=== PATIENT | male | born 1955 | race Caucasian/White ===

== ENCOUNTER 2024-07-04 14:40 | Inpatient (IN) | payer OTHER ==
[~2024-07-04] VITALS: Ht 121.9 cm; Wt 67.1 kg
[2024-07-04 14:48] VITALS: BP 127/67; PULSE 64; RESP 14; TEMP 98.1; O2SAT 96
[2024-07-04 15:55] LABS: BASOPHILS # (AUTO) 0.1 K/uL (0.00-0.22); BASOPHILS % (AUTO) 2.1 % (0.0-2.0); EOSINOPHILS # (AUTO) 0.1 K/uL (0-0.4); EOSINOPHILS % (AUTO) 1.5 % (0.0-4.0); HEMATOCRIT 39.9 % (36-52); HEMOGLOBIN 13.2 g/dL (12.0-18.0); LYMPHOCYTES # (AUTO) 2.7 K/uL (2.0-11.5); LYMPHOCYTES % (AUTO) 45.4 % (20.5-51.1); MEAN CORPUSCULAR HEMOGLOBIN 29 pg (27-31); MEAN CORPUSCULAR HGB CONC 33 g/dL (33-37); MEAN CORPUSCULAR VOLUME 86.3 fL (80-94); MONOCYTES # (AUTO) 0.4 K/uL (0.8-1.0); MONOCYTES % (AUTO) 6.8 % (1.7-9.3); NEUTROPHILS # (AUTO) 2.6 K/uL (1.8-7.7); NEUTROPHILS % (AUTO) 44.2 % (42.2-75.2); PLATELET COUNT (AUTO) 306 K/uL (140-450); RED BLOOD CELL COUNT(AUTO) 4.62 MIL/uL (4.20-6.10); WHITE BLOOD COUNT (AUTO) 5.9 K/uL (4.8-10.8)
[2024-07-04 16:03] LABS: ANION GAP 13.2 (8-16); CALCIUM 8.3 mg/dL (8.5-10.1); CARBON DIOXIDE 24.4 mmol/L (21-32); CREATININE 0.7 mg/dL (0.6-1.3); POTASSIUM 4.6 mmol/L (3.5-5.1)
[2024-07-04 16:08] LABS: ALBUMIN 3.1 g/dL (3.4-5.0); TOTAL BILIRUBIN 0.1 mg/dL (0.0-1.0); TOTAL PROTEIN, SERUM 7.2 g/dL (6.4-8.2)
[2024-07-04 16:44] VITALS: O2SAT 95
[2024-07-04 17:14] LABS: BILIRUBIN,URINE NEGATIVE (NEGATIVE); BLOOD, URINE 2+ (NEGATIVE); LEUKOCYTE ESTERASE ,URINE 3+ (NEGATIVE); NITRITE, URINE POSITIVE (NEGATIVE); PH,URINE 7.5 (5.0-9.0); PROTEIN,URINE NEGATIVE (NEGATIVE); UGLUCOSE 1+ (NEGATIVE); UROBILINOGEN,URINE 0.2 EU/dL (0.2 - 1)
[2024-07-04 17:23] LABS: APPEARANCE,URINE SLIGHTLY CLOUDY (CLEAR); COLOR,URINE AMBER (YELLOW)
[2024-07-04 17:25] LABS: BACTERIA,URINE >30 (MANY) /HPF (None Seen); RBC,URINE 11-20 (MOD) /HPF (0-5); SQUAMOUS EPITHELIAL CELL,UR 0-3 (FEW) /LPF (0-3 (FEW))
[2024-07-04] MEDS ORDERED: cefTRIAXone 1,000 MG VIAL ONE (17:44)
[2024-07-04 18:07] LABS: LACTIC ACID 2.8 mmol/L (0.4-2.0)
[2024-07-04] MEDS: NACL 0.9% 2,000 ML IV ONE (18:18)
[2024-07-04] MEDS ORDERED: ACETAMINOPHEN 325 MG TAB PO PRN (18:30)
[2024-07-04] MEDS ORDERED: ONDANSETRON 4 MG/2 ML VIAL IVP PRN (18:30)
[2024-07-04 18:47] VITALS: O2SAT 95
[2024-07-04] MEDS ORDERED: POTA10TA81 PO (20:18)
[2024-07-04] MEDS ORDERED: LEVE250T1 PO (20:18)
[2024-07-04] MEDS ORDERED: ATOR40TA PO (20:18)
[2024-07-04] MEDS ORDERED: BISA-279 RC (20:18)
[2024-07-04] MEDS ORDERED: PHEN50CT5 PO (20:18)
[2024-07-04] MEDS ORDERED: ACET500T99 PO (20:18)
[2024-07-04] MEDS ORDERED: LISI-951 PO (20:18)
[2024-07-04] MEDS ORDERED: DOCU-299 PO (20:18)
[2024-07-04] MEDS ORDERED: ASPI-1822 PO (20:18)
[2024-07-04] MEDS ORDERED: TAMS0.4C96 PO (20:18)
[2024-07-04] MEDS ORDERED: INSU100I7 SQ (20:18)
[2024-07-04] MEDS ORDERED: SLIDE SUBQ (20:18)
[2024-07-04] MEDS ORDERED: METF-713 PO (20:18)
[2024-07-04] MEDS ORDERED: AMLO2.5T PO (20:18)
[2024-07-04] MEDS ORDERED: MULT-2253 PO (20:18)
[2024-07-04] MEDS ORDERED: GABA300C PO (20:18)
[2024-07-04] MEDS ORDERED: GLUC1AUT SQ (20:18)
[2024-07-04] MEDS ORDERED: FERR325E14 PO (20:18)
[2024-07-04 20:19] VITALS: O2SAT 95
[2024-07-04] MEDS: NACL 0.9% 1,000 ML IV SCH (20:41)
[2024-07-04] MEDS: MORPHINE SULFATE 4 MG/ML SYR IVP PRN (23:44)
[2024-07-05] VITALS (11 sets, daily range): BP systolic 127–144; BP diastolic 60–73; PULSE 66–88; RESP 16–17; TEMP 98.4–98.5; O2SAT 97–99
[2024-07-05 05:56] LABS: BASOPHILS # (AUTO) 0.2 K/uL (0.00-0.22); BASOPHILS % (AUTO) 1.5 % (0.0-2.0); HEMATOCRIT 38.5 % (36-52); HEMOGLOBIN 12.8 g/dL (12.0-18.0); LYMPHOCYTES # (AUTO) 1.2 K/uL (2.0-11.5); LYMPHOCYTES % (AUTO) 9.3 % (20.5-51.1); MEAN CORPUSCULAR HEMOGLOBIN 29 pg (27-31); MEAN CORPUSCULAR HGB CONC 33 g/dL (33-37); MEAN CORPUSCULAR VOLUME 86.5 fL (80-94); MONOCYTES # (AUTO) 0.8 K/uL (0.8-1.0); MONOCYTES % (AUTO) 6.5 % (1.7-9.3); NEUTROPHILS # (AUTO) 10.9 K/uL (1.8-7.7); NEUTROPHILS % (AUTO) 82.7 % (42.2-75.2); PLATELET COUNT (AUTO) 257 K/uL (140-450); RED BLOOD CELL COUNT(AUTO) 4.44 MIL/uL (4.20-6.10); RED CELL DISTRIBUTION WIDTH 13.3 % (11.6-13.7); WHITE BLOOD COUNT (AUTO) 13.1 K/uL (4.8-10.8)
[2024-07-05 06:17] LABS: ANION GAP 15.5 (8-16); CALCIUM 8.4 mg/dL (8.5-10.1); CREATININE 0.7 mg/dL (0.6-1.3); POTASSIUM 4.5 mmol/L (3.5-5.1)
[2024-07-05] MEDS: HYDROcodone/APAP 5/325 MG 1 TAB TAB PO PRN (11:00)
[2024-07-05] MEDS: Z-GUARD PASTE TP ONE (17:10)
[2024-07-06] VITALS: BP 140/67; PULSE 83; RESP 16; TEMP 98.5; O2SAT 99
[2024-07-06 04:00] VITALS: BP 121/59; PULSE 64; RESP 16; TEMP 97.4; O2SAT 95
[2024-07-06 08:00] VITALS: BP 109/71; PULSE 69; RESP 18; TEMP 96.9; O2SAT 97; O2SAT 99
[2024-07-06 09:16] LABS: HEMATOCRIT 37.7 % (36-52); HEMOGLOBIN 12.5 g/dL (12.0-18.0); MEAN CORPUSCULAR HEMOGLOBIN 29 pg (27-31); MEAN CORPUSCULAR HGB CONC 33 g/dL (33-37); PLATELET COUNT (AUTO) 272 K/uL (140-450); RED BLOOD CELL COUNT(AUTO) 4.38 MIL/uL (4.20-6.10); RED CELL DISTRIBUTION WIDTH 13.5 % (11.6-13.7); WHITE BLOOD COUNT (AUTO) 6.4 K/uL (4.8-10.8)
[2024-07-06 09:25] LABS: ANION GAP 13.7 (8-16); CALCIUM 7.7 mg/dL (8.5-10.1); CARBON DIOXIDE 22.8 mmol/L (21-32); CREATININE 0.5 mg/dL (0.6-1.3); POTASSIUM 3.5 mmol/L (3.5-5.1)
[2024-07-06 09:42] LABS: BASOPHILS % (MANUAL) 0 % (0-2); BLASTS, MANUAL % 0 % (0-0); EOSINOPHILS % (MANUAL) 1 % (0-4); LYMPHOCYTES % (MANUAL) 25 % (20-46); METAMYELOCYTES % 0 % (0-0); MONOCYTES % (MANUAL) 6 % (5-12); MYELOCYTES % 0 % (0-0); OTHER CELLS,MANUAL % 0 (0-0); PLASMA CELLS 0; PLATELET ESTIMATE ADEQUATE; PROMYELOCYTES % 0 % (0-0); SMUDGE CELLS 0
[2024-07-06] MEDS: MAG SULF 2000 MG/WATER PREMIX 100 ML IV ONE (11:10)
[2024-07-06] MEDS ORDERED: Z-GUARD PASTE TP PRN (11:25)
[2024-07-06] MEDS: FOAM DRESSING TP SCH (13:08)
[2024-07-06] MEDS: THERAHONEY GEL 42.5 GM TP SCH (13:09)
[2024-07-06] MEDS: Z-GUARD PASTE TP SCH (13:30)
[2024-07-06 16:00] VITALS: BP 117/62; PULSE 75; RESP 16; TEMP 98; O2SAT 95
[2024-07-06 20:00] VITALS: BP 144/68; PULSE 78; RESP 18; TEMP 98.1; O2SAT 95
[2024-07-07] VITALS (32 sets, daily range): BP systolic 80–190; BP diastolic 5–80; PULSE 47–119; RESP 16–31; TEMP 97.1–98.4; O2SAT 92–100
[2024-07-07] MEDS: PROPOFOL 1000 MG/100 ML PREMIX 100 ML IV PRN (00:30)
[2024-07-07] MEDS: PROPOFOL 1000 MG/100 ML PREMIX 100 ML IV ONE (00:44)
[2024-07-07 01:53] LABS: BLOOD GAS BASE EXCESS -5.4 mmol/L (-2.0-3.0); BLOOD GAS HCO3 19.1 mmol/L (21.0-28.0); BLOOD GAS PCO2 34.2 mmHg (35.0-48.0); BLOOD GAS PH 7.366 (7.350-7.450); BLOOD GAS PO2 67.9 mmHg (83.0-108.0)
[2024-07-07 02:04] LABS: BASOPHILS % (AUTO) 0.3 % (0.0-2.0); EOSINOPHILS % (AUTO) 0.2 % (0.0-4.0); HEMOGLOBIN 12.1 g/dL (12.0-18.0); LYMPHOCYTES # (AUTO) 0.8 K/uL (2.0-11.5); MEAN CORPUSCULAR HEMOGLOBIN 29 pg (27-31); MEAN CORPUSCULAR HGB CONC 34 g/dL (33-37); MEAN CORPUSCULAR VOLUME 86.3 fL (80-94); MONOCYTES # (AUTO) 0.6 K/uL (0.8-1.0); MONOCYTES % (AUTO) 5.7 % (1.7-9.3); NEUTROPHILS % (AUTO) 85.8 % (42.2-75.2); PLATELET COUNT (AUTO) 261 K/uL (140-450); RED BLOOD CELL COUNT(AUTO) 4.17 MIL/uL (4.20-6.10); RED CELL DISTRIBUTION WIDTH 13.2 % (11.6-13.7); WHITE BLOOD COUNT (AUTO) 10.4 K/uL (4.8-10.8)
[2024-07-07] MEDS: MIDODRINE 5 MG TAB ONE (02:07)
[2024-07-07 02:15] LABS: ANION GAP 15.9 (8-16); CALCIUM 7.6 mg/dL (8.5-10.1); CARBON DIOXIDE 19.5 mmol/L (21-32); CREATININE 0.6 mg/dL (0.6-1.3); POTASSIUM 3.4 mmol/L (3.5-5.1)
[2024-07-07] MEDS: fentaNYL citrate 0.05 MG/ML VIAL ONE (02:20)
[2024-07-07] MEDS: fentaNYL citrate 1 MG in NACL 0.9% 80 ML IV PRN (02:20)
[2024-07-07] MEDS: MIDODRINE 5 MG TAB NG SCH (02:27)
[2024-07-07] MEDS ORDERED: HEPARIN PER PHARMACY MC PRN (02:40)
[2024-07-07] MEDS ORDERED: hePARIN / DEXT 5% PREMIX 250 ML IV SCH (02:40)
[2024-07-07] MEDS: NOREPINEPHRINE 4 MG in DEXTROSE 5% 250 ML IV PRN (03:13)
[2024-07-07] MEDS: NOREPINEPHRINE 4 MG/4 ML VIAL IV ONE (03:17)
[2024-07-07] MEDS: hePARIN / DEXT 5% PREMIX 250 ML IV SCH (07:30)
[2024-07-07] MEDS: MIDODRINE 5 MG TAB PO SCH ×2 (10:06→18:30)
[2024-07-07] MEDS ORDERED: ETOMIDATE 20 MG/10 ML VIAL IVP ONE (12:00)
[2024-07-07] MEDS ORDERED: SUCCINYLCHOLINE CHLORIDE 200 MG/10 ML VIAL IVP ONE (12:00)
[2024-07-07] MEDS ORDERED: ROCURONIUM 50 MG/5 ML VIAL IV ONE (12:00)
[2024-07-07] MEDS ORDERED: DEXTROSE 50% 50 ML SYR IVP PRN (14:00)
[2024-07-07] MEDS: FUROSEMIDE 20 MG/2 ML VIAL IVP SCH (14:09)
[2024-07-07] MEDS: PIPERACILLIN/TAZOBACTAM 3.375 GM in DEXTROSE 5% 50 ML IV SCH (14:12)
[2024-07-07 16:55] LABS: INR 1.04 (0.8-1.2); PROTHROMBIN TIME 10.9 secs (10.8-13.4)
[2024-07-07] MEDS: BLOOD GLUCOSE MONITORING 1 DEV DEV FS SCH (18:40)
[2024-07-07] MEDS: INSULIN LISPRO SLIDING SCALE 100 UNITS/ML VIAL SUBQ PRN (18:41)
[2024-07-07] MEDS: ALBUTEROL SULFATE/IPRATROPIU 3 ML SOL IH SCH (19:31)
[2024-07-07] MEDS ORDERED: PHENYTOIN PO SCH (21:00)
[2024-07-07] MEDS ORDERED: LEVETIRACETAM PO SCH (21:00)
[2024-07-07] MEDS: ATORVASTATIN 20 MG TAB NG SCH (21:06)
[2024-07-07] MEDS: levETIRAcetam 100 MG/ML ORASYR GT SCH (21:06)
[2024-07-07] MEDS: PHENYTOIN 100 MG/4 ML UDC GT SCH (21:07)
[2024-07-07] MEDS: FAMOTIDINE 20 MG/2 ML VIAL IV SCH (21:09)
[2024-07-08] VITALS (33 sets, daily range): BP systolic 83–174; BP diastolic 48–105; PULSE 46–120; RESP 19–32; TEMP 97.2–98.4; O2SAT 96–100
[2024-07-08] MEDS: NOREPINEPHRINE 16 MG in DEXTROSE 5% 250 ML IV PRN
[2024-07-08] MEDS: NOREPINEPHRINE 4 MG/4 ML VIAL IV ONE (00:24)
[2024-07-08 05:07] LABS: BASOPHILS # (AUTO) 0.1 K/uL (0.00-0.22); BASOPHILS % (AUTO) 0.9 % (0.0-2.0); EOSINOPHILS # (AUTO) 0.1 K/uL (0-0.4); HEMATOCRIT 34.2 % (36-52); HEMOGLOBIN 11.3 g/dL (12.0-18.0); LYMPHOCYTES # (AUTO) 2.1 K/uL (2.0-11.5); LYMPHOCYTES % (AUTO) 21.8 % (20.5-51.1); MEAN CORPUSCULAR HEMOGLOBIN 28 pg (27-31); MEAN CORPUSCULAR HGB CONC 33 g/dL (33-37); MEAN CORPUSCULAR VOLUME 85.9 fL (80-94); MONOCYTES # (AUTO) 1.2 K/uL (0.8-1.0); MONOCYTES % (AUTO) 12.5 % (1.7-9.3); NEUTROPHILS # (AUTO) 6.1 K/uL (1.8-7.7); NEUTROPHILS % (AUTO) 63.8 % (42.2-75.2); PLATELET COUNT (AUTO) 244 K/uL (140-450); RED BLOOD CELL COUNT(AUTO) 3.99 MIL/uL (4.20-6.10); RED CELL DISTRIBUTION WIDTH 13.2 % (11.6-13.7); WHITE BLOOD COUNT (AUTO) 9.5 K/uL (4.8-10.8)
[2024-07-08 05:29] LABS: ANION GAP 12.7 (8-16); CALCIUM 7.8 mg/dL (8.5-10.1); CARBON DIOXIDE 23.9 mmol/L (21-32); CREATININE 0.6 mg/dL (0.6-1.3)
[2024-07-08 05:53] LABS: POTASSIUM 2.6 mmol/L (3.5-5.1)
[2024-07-08] MEDS: POTASSIUM CHLORIDE 20% 40 MEQ/15 ML UDC PO PRN (06:48)
[2024-07-08] MEDS: TAMSULOSIN 0.4 MG CAP PO SCH (08:37)
[2024-07-08] MEDS: ASPIRIN 81 MG TAB.CHEW NG SCH (08:38)
[2024-07-08] MEDS: MULTIVITAMIN/MINERALS 15 ML UDBTL GT SCH (08:40)
[2024-07-08] MEDS ORDERED: NON-FORMULARY ITEM (Multivitamin (Multi-Vitamin Daily) 1 TAB) PO SCH (09:00)
[2024-07-08] MEDS: KCL 20 MEQ IN 100 mL PREMIX 200 ML IV SCH (10:51)
[2024-07-08] MEDS: MAG SULF 2000 MG/WATER PREMIX 50 ML IV SCH (14:08)
[2024-07-08] MEDS: NACL 0.9% 1,000 ML IV SCH (15:27)
[2024-07-09] VITALS (32 sets, daily range): BP systolic 92–140; BP diastolic 51–74; PULSE 56–87; RESP 13–20; TEMP 97.9–99; O2SAT 95–100
[2024-07-09 06:15] LABS: BASOPHILS # (AUTO) 0.1 K/uL (0.00-0.22); BASOPHILS % (AUTO) 0.9 % (0.0-2.0); EOSINOPHILS # (AUTO) 0.1 K/uL (0-0.4); EOSINOPHILS % (AUTO) 1.7 % (0.0-4.0); HEMATOCRIT 29.7 % (36-52); HEMOGLOBIN 10.2 g/dL (12.0-18.0); LYMPHOCYTES # (AUTO) 1.7 K/uL (2.0-11.5); MEAN CORPUSCULAR HEMOGLOBIN 29 pg (27-31); MEAN CORPUSCULAR HGB CONC 34 g/dL (33-37); MEAN CORPUSCULAR VOLUME 85.9 fL (80-94); MONOCYTES # (AUTO) 0.9 K/uL (0.8-1.0); MONOCYTES % (AUTO) 11.9 % (1.7-9.3); NEUTROPHILS # (AUTO) 4.9 K/uL (1.8-7.7); NEUTROPHILS % (AUTO) 63.5 % (42.2-75.2); PLATELET COUNT (AUTO) 226 K/uL (140-450); RED BLOOD CELL COUNT(AUTO) 3.45 MIL/uL (4.20-6.10); RED CELL DISTRIBUTION WIDTH 13.4 % (11.6-13.7); WHITE BLOOD COUNT (AUTO) 7.8 K/uL (4.8-10.8)
[2024-07-09 06:26] LABS: ANION GAP 11.6 (8-16); CALCIUM 7.6 mg/dL (8.5-10.1); CARBON DIOXIDE 24.2 mmol/L (21-32); CREATININE 0.6 mg/dL (0.6-1.3); POTASSIUM 3.8 mmol/L (3.5-5.1)
[2024-07-09] MEDS: NOREPINEPHRINE 8 MG in DEXTROSE 5% 250 ML IV PRN (11:27)
[2024-07-10] VITALS (34 sets, daily range): BP systolic 88–148; BP diastolic 49–88; PULSE 53–79; RESP 15–22; TEMP 97.8–98.8; O2SAT 94–100
[2024-07-10 05:19] LABS: BASOPHILS % (AUTO) 0.3 % (0.0-2.0); EOSINOPHILS # (AUTO) 0.3 K/uL (0-0.4); EOSINOPHILS % (AUTO) 3.8 % (0.0-4.0); HEMATOCRIT 30.4 % (36-52); HEMOGLOBIN 10.2 g/dL (12.0-18.0); LYMPHOCYTES # (AUTO) 1.6 K/uL (2.0-11.5); MEAN CORPUSCULAR HEMOGLOBIN 29 pg (27-31); MEAN CORPUSCULAR HGB CONC 33 g/dL (33-37); MEAN CORPUSCULAR VOLUME 85.7 fL (80-94); MONOCYTES # (AUTO) 0.8 K/uL (0.8-1.0); MONOCYTES % (AUTO) 10.1 % (1.7-9.3); NEUTROPHILS # (AUTO) 5.6 K/uL (1.8-7.7); NEUTROPHILS % (AUTO) 66.8 % (42.2-75.2); PLATELET COUNT (AUTO) 236 K/uL (140-450); RED BLOOD CELL COUNT(AUTO) 3.55 MIL/uL (4.20-6.10); RED CELL DISTRIBUTION WIDTH 13.4 % (11.6-13.7); WHITE BLOOD COUNT (AUTO) 8.3 K/uL (4.8-10.8)
[2024-07-10 05:32] LABS: ALBUMIN 1.9 g/dL (3.4-5.0); CALCIUM 7.6 mg/dL (8.5-10.1); CREATININE 0.6 mg/dL (0.6-1.3); TOTAL BILIRUBIN 0.3 mg/dL (0.0-1.0); TOTAL PROTEIN, SERUM 5.9 g/dL (6.4-8.2)
[2024-07-10] MEDS: FOAM DRESSING TP PRN (05:40)
[2024-07-10] MEDS: THERAHONEY GEL 42.5 GM TP PRN (05:40)
[2024-07-10] MEDS ORDERED: DEXMEDETOMIDINE HCL 400 MCG in NACL 0.9% 96 ML IV PRN (19:50)
[2024-07-10] MEDS: DEXMEDETOMIDINE HCL 100 MCG/ML 2 ML VIAL IV ONE (19:55)
[2024-07-10] MEDS: DEXMEDETOMIDINE HCL 400 MCG in NACL 0.9% 96 ML IV PRN (20:00)
[2024-07-11] VITALS (35 sets, daily range): BP systolic 87–134; BP diastolic 50–68; PULSE 51–104; RESP 16–23; TEMP 97.4–97.9; O2SAT 93–100
[2024-07-11] MEDS: DEXMEDETOMIDINE HCL 400 MCG in NACL 0.9% 96 ML IV PRN (11:46)
[2024-07-12] VITALS (33 sets, daily range): BP systolic 102–151; BP diastolic 49–75; PULSE 52–98; RESP 12–20; TEMP 97.3–98.6; O2SAT 93–100
[2024-07-12 05:25] LABS: BASOPHILS # (AUTO) 0.1 K/uL (0.00-0.22); BASOPHILS % (AUTO) 1.1 % (0.0-2.0); EOSINOPHILS # (AUTO) 0.2 K/uL (0-0.4); EOSINOPHILS % (AUTO) 2.7 % (0.0-4.0); HEMATOCRIT 29.8 % (36-52); LYMPHOCYTES # (AUTO) 2.3 K/uL (2.0-11.5); LYMPHOCYTES % (AUTO) 27.7 % (20.5-51.1); MEAN CORPUSCULAR HEMOGLOBIN 29 pg (27-31); MEAN CORPUSCULAR HGB CONC 34 g/dL (33-37); MONOCYTES # (AUTO) 0.8 K/uL (0.8-1.0); MONOCYTES % (AUTO) 9.5 % (1.7-9.3); NEUTROPHILS # (AUTO) 4.9 K/uL (1.8-7.7); PLATELET COUNT (AUTO) 303 K/uL (140-450); RED BLOOD CELL COUNT(AUTO) 3.46 MIL/uL (4.20-6.10); RED CELL DISTRIBUTION WIDTH 13.7 % (11.6-13.7); WHITE BLOOD COUNT (AUTO) 8.2 K/uL (4.8-10.8)
[2024-07-12 06:08] LABS: ANION GAP 12.1 (8-16); CALCIUM 8.2 mg/dL (8.5-10.1); CARBON DIOXIDE 27.9 mmol/L (21-32); CREATININE 0.7 mg/dL (0.6-1.3)
[2024-07-13] VITALS (22 sets, daily range): BP systolic 103–154; BP diastolic 54–77; PULSE 46–88; RESP 15–25; TEMP 97.2–98; O2SAT 96–100
[2024-07-13 09:12] LABS: BASOPHILS # (AUTO) 0.1 K/uL (0.00-0.22); BASOPHILS % (AUTO) 0.8 % (0.0-2.0); EOSINOPHILS # (AUTO) 0.3 K/uL (0-0.4); EOSINOPHILS % (AUTO) 2.9 % (0.0-4.0); HEMATOCRIT 31.3 % (36-52); HEMOGLOBIN 10.3 g/dL (12.0-18.0); LYMPHOCYTES # (AUTO) 2.5 K/uL (2.0-11.5); LYMPHOCYTES % (AUTO) 26.2 % (20.5-51.1); MEAN CORPUSCULAR HEMOGLOBIN 28 pg (27-31); MEAN CORPUSCULAR HGB CONC 33 g/dL (33-37); MEAN CORPUSCULAR VOLUME 86.4 fL (80-94); MONOCYTES # (AUTO) 0.7 K/uL (0.8-1.0); MONOCYTES % (AUTO) 7.3 % (1.7-9.3); NEUTROPHILS % (AUTO) 62.8 % (42.2-75.2); PLATELET COUNT (AUTO) 359 K/uL (140-450); RED BLOOD CELL COUNT(AUTO) 3.62 MIL/uL (4.20-6.10); RED CELL DISTRIBUTION WIDTH 13.8 % (11.6-13.7); WHITE BLOOD COUNT (AUTO) 9.6 K/uL (4.8-10.8)
[2024-07-13 09:37] LABS: ANION GAP 9.1 (8-16); CALCIUM 8.5 mg/dL (8.5-10.1); CARBON DIOXIDE 29.7 mmol/L (21-32); CREATININE 0.7 mg/dL (0.6-1.3); POTASSIUM 3.8 mmol/L (3.5-5.1)
[2024-07-13] MEDS: DEXT 5% / NACL 0.9% 1,000 ML IV SCH (17:02)
[2024-07-14] VITALS (17 sets, daily range): BP systolic 128–143; BP diastolic 32–84; PULSE 79–138; RESP 16–33; TEMP 97.8–98.2; O2SAT 92–100
[2024-07-14 06:01] LABS: ANION GAP 12.4 (8-16); CALCIUM 8.4 mg/dL (8.5-10.1); CARBON DIOXIDE 27.9 mmol/L (21-32); CREATININE 0.7 mg/dL (0.6-1.3); POTASSIUM 3.3 mmol/L (3.5-5.1)
[2024-07-14 06:27] LABS: BASOPHILS # (AUTO) 0.1 K/uL (0.00-0.22); BASOPHILS % (AUTO) 0.9 % (0.0-2.0); EOSINOPHILS # (AUTO) 0.2 K/uL (0-0.4); EOSINOPHILS % (AUTO) 2.2 % (0.0-4.0); HEMATOCRIT 31.3 % (36-52); HEMOGLOBIN 10.2 g/dL (12.0-18.0); LYMPHOCYTES % (AUTO) 30.8 % (20.5-51.1); MEAN CORPUSCULAR HEMOGLOBIN 28 pg (27-31); MEAN CORPUSCULAR HGB CONC 33 g/dL (33-37); MEAN CORPUSCULAR VOLUME 87.1 fL (80-94); MONOCYTES # (AUTO) 1.2 K/uL (0.8-1.0); MONOCYTES % (AUTO) 12.7 % (1.7-9.3); NEUTROPHILS # (AUTO) 5.2 K/uL (1.8-7.7); NEUTROPHILS % (AUTO) 53.4 % (42.2-75.2); PLATELET COUNT (AUTO) 390 K/uL (140-450); RED BLOOD CELL COUNT(AUTO) 3.59 MIL/uL (4.20-6.10); WHITE BLOOD COUNT (AUTO) 9.8 K/uL (4.8-10.8)
[2024-07-14] MEDS: KCL 20 MEQ IN 100 mL PREMIX 200 ML IV PRN (08:31)
[2024-07-14] MEDS: ALBUTEROL SULFATE/IPRATROPIU 3 ML SOL IH PRN (11:08)
[2024-07-14] MEDS: ALBUTEROL SULFATE/IPRATROPIU 3 ML SOL IH SCH (11:32)
[2024-07-14] MEDS: ACETYLCYSTEINE 10% (100 MG/ML) 100 MG/ML VIAL INH SCH (11:33)
[2024-07-14] MEDS: FUROSEMIDE 20 MG/2 ML VIAL IVP SCH (12:38)
[2024-07-14] MEDS: PHENYTOIN 100 MG/2 ML VIAL IVP SCH (20:31)
[2024-07-14] MEDS: levETIRAcetam 500 MG in NACL 0.9% 100 ML IV SCH (20:36)
[2024-07-15] VITALS (17 sets, daily range): BP systolic 111–142; BP diastolic 56–78; PULSE 74–101; RESP 14–29; TEMP 96.5–98.5; O2SAT 95–99
[2024-07-15] MEDS: MULTIVITAMIN/MINERALS 1 TAB PO SCH (08:44)
[2024-07-15 12:24] LABS: BASOPHILS # (AUTO) 0.1 K/uL (0.00-0.22); BASOPHILS % (AUTO) 1.4 % (0.0-2.0); EOSINOPHILS # (AUTO) 0.1 K/uL (0-0.4); EOSINOPHILS % (AUTO) 1.7 % (0.0-4.0); HEMATOCRIT 33.4 % (36-52); LYMPHOCYTES # (AUTO) 2.3 K/uL (2.0-11.5); LYMPHOCYTES % (AUTO) 31.6 % (20.5-51.1); MEAN CORPUSCULAR HEMOGLOBIN 28 pg (27-31); MEAN CORPUSCULAR HGB CONC 33 g/dL (33-37); MEAN CORPUSCULAR VOLUME 86.6 fL (80-94); MONOCYTES % (AUTO) 13.5 % (1.7-9.3); NEUTROPHILS # (AUTO) 3.7 K/uL (1.8-7.7); NEUTROPHILS % (AUTO) 51.8 % (42.2-75.2); PLATELET COUNT (AUTO) 402 K/uL (140-450); RED BLOOD CELL COUNT(AUTO) 3.86 MIL/uL (4.20-6.10); WHITE BLOOD COUNT (AUTO) 7.2 K/uL (4.8-10.8)
[2024-07-15 12:36] LABS: MAGNESIUM 1.4 mg/dL (1.8-2.4)
[2024-07-15 13:12] LABS: ANION GAP 11.1 (8-16); CALCIUM 8.2 mg/dL (8.5-10.1); CARBON DIOXIDE 28.1 mmol/L (21-32); CREATININE 0.7 mg/dL (0.6-1.3); POTASSIUM 3.2 mmol/L (3.5-5.1)
[2024-07-15] MEDS: MAG SULF 2000 MG/WATER PREMIX 50 ML IV SCH (16:21)
[2024-07-16] VITALS (8 sets, daily range): BP systolic 119–137; BP diastolic 68–80; PULSE 67–88; RESP 18–24; TEMP 96.5–99.9; O2SAT 94–96
[2024-07-16 05:18] LABS: BASOPHILS # (AUTO) 0.2 K/uL (0.00-0.22); BASOPHILS % (AUTO) 2.2 % (0.0-2.0); EOSINOPHILS # (AUTO) 0.3 K/uL (0-0.4); EOSINOPHILS % (AUTO) 3.3 % (0.0-4.0); HEMATOCRIT 32.3 % (36-52); HEMOGLOBIN 10.7 g/dL (12.0-18.0); LYMPHOCYTES # (AUTO) 2.5 K/uL (2.0-11.5); LYMPHOCYTES % (AUTO) 29.7 % (20.5-51.1); MEAN CORPUSCULAR HEMOGLOBIN 29 pg (27-31); MEAN CORPUSCULAR HGB CONC 33 g/dL (33-37); MEAN CORPUSCULAR VOLUME 86.4 fL (80-94); MONOCYTES # (AUTO) 0.8 K/uL (0.8-1.0); MONOCYTES % (AUTO) 8.9 % (1.7-9.3); NEUTROPHILS # (AUTO) 4.8 K/uL (1.8-7.7); NEUTROPHILS % (AUTO) 55.9 % (42.2-75.2); PLATELET COUNT (AUTO) 426 K/uL (140-450); RED BLOOD CELL COUNT(AUTO) 3.74 MIL/uL (4.20-6.10); RED CELL DISTRIBUTION WIDTH 14.3 % (11.6-13.7); WHITE BLOOD COUNT (AUTO) 8.6 K/uL (4.8-10.8)
[2024-07-16 05:27] LABS: ANION GAP 10.1 (8-16); CALCIUM 8.2 mg/dL (8.5-10.1); CREATININE 0.6 mg/dL (0.6-1.3); POTASSIUM 4.1 mmol/L (3.5-5.1)
[2024-07-16 13:36] LABS: MAGNESIUM 1.9 mg/dL (1.8-2.4)
== END 2024-07-16 18:50 | DRG 870 ==
LOC: MED 14:40 → MMU 18:26 → MTU 20:24 → OBSVTOIN 22:22 → MIC 07-07 00:15 → MTU 07-15 15:30
PROVIDERS: ADMIT Hospitalist; ATTEND Hospitalist
PROC: 5A1955Z Respiratory Ventilation, Greater than 96 Consecutive Hours (ICD-10-PCS; principal; 2024-07-07)
PROC: 0BH17EZ Insertion of Endotracheal Airway into Trachea, Via Natural or Artificial Opening (ICD-10-PCS; 2024-07-07)
PROC: 05H533Z Insertion of Infusion Device into Right Subclavian Vein, Percutaneous Approach (ICD-10-PCS; 2024-07-07)
DX: A41.9 Sepsis, unspecified organism (principal); J96.01 Acute respiratory failure with hypoxia; R65.21 Severe sepsis with septic shock; I21.A1 Myocardial infarction type 2; I50.33 Acute on chronic diastolic (congestive) heart failure; J18.9 Pneumonia, unspecified organism; N39.0 Urinary tract infection, site not specified; E87.1 Hypo-osmolality and hyponatremia; E87.20 Acidosis, unspecified; Z20.822 Contact with and (suspected) exposure to COVID-19; E11.9 Type 2 diabetes mellitus without complications; G40.909 Epilepsy, unspecified, not intractable, without status epilepticus; E78.5 Hyperlipidemia, unspecified; N40.0 Benign prostatic hyperplasia without lower urinary tract symptoms; I11.0 Hypertensive heart disease with heart failure; Z79.82 Long term (current) use of aspirin; Z79.899 Other long term (current) drug therapy
CPT/HCPCS: 31500; 36415; 36600; 70450; 71045; 80048; 80053; 80076; 81001; 82533; 82803; 82948; 83036; 83605; 83735; 83880; 84484; 85025; 85610; 85730; 87040; 87070; 87081; 87086; 87186; 87205; 87635-QW; 92526; 92950; 93005; 94002; 94003; 94640; 94667; 96361; 96365; 99285; J0330; J0696; J1165; J1644; J1815; J1940; J1953; J2270; J2543; J2704; J3010; J3475; J3480; J3490; J7060; Q0092